=== PATIENT | male | born 1945 | race Caucasian/White ===

== ENCOUNTER 2024-12-18 07:57 | Emergency (ER) | payer BC, MEDICARE, SELFPAY ==
[2024-12-18 08:24] VITALS: BP 153/97; PULSE 62; RESP 16; TEMP 36.6; O2SAT 95
--- NOTE | 2024-12-18 08:30 | DI.RAD_ITS ---
Exam(s) XR WRIST RT COMPLETE EXAM: XR WRIST RT COMPLETE CLINICAL HISTORY: Right wrist pain. TECHNIQUE: 2D digital imaging was performed. COMPARISON: No exams were available for comparison FINDINGS: 3 views No evidence of acute fracture or dislocation nor significant ulnar variance. Scaphoid and scapholunate distance are normal. Bone density normal. No osseous lesions nor erosions. No significant degenerative changes in the wrist. IMPRESSION: No significant osseous findings in the right wrist. DATA REPOSITORY: RADIATION DOSE DELIVERED:
--- NOTE | 2024-12-18 08:42 | ED.GENADUL_ITS ---
Discharge Plan Disposition Patient Disposition: Home Condition: Good Discharge Details Clinical Impression: Contusion of right wrist, Sprain of right wrist Primary Care Provider: None,None ED Provider: Nya Correia Home Meds and New Rx's Prescriptions: Continued lovastatin 40 mg tablet 40 mg PO DAILY Patient Comments: TAKE 1 TABLET BY MOUTH EVERY DAY Discharge Instructions Instructions: Wrist Sprain ED Additional Instructions: As we discussed, your x-ray is reassuring. No evidence to suggest fracture or dislocation. Please continue to encourage rest, ice, elevation. Tylenol and ibuprofen as needed for discomfort. Please take as directed on the packaging. Please follow-up with your primary care in 2 weeks for reevaluation. You may use the splint to help with discomfort while this persist. If you develop any new or worsening symptoms please seek care urgently once again. HPI General Date/Time Provider Initiated Documentation: 12/18/24 08:28 . Limitations to Documentation: no limitations . Information obtained by: patient and RN notes reviewed . History of Present Illness 79 year old M presents to the emergency department with the chief complaint of right wrist pain, described as moderate, Quality is described as aching, Patient reports no radiation. Patient started experiencing this day(s) (1) and it has been constant. Immobilization improves symptom(s), Movement worsens symptoms . Patient notes no other symptoms.. Patient did receive the following treatments prior to arrival, none Related Data Home Medications Medication Instructions Recorded Confirmed lovastatin 40 mg tablet 40 mg PO DAILY 12/18/2411/21 Allergies Allergy/AdvReac Type Severity Reaction Status Date / Time No Known Allergies Allergy Unverified 12/18/24 08:26 General Stated Complaint: Orthopedic ANTELMO: 4 Review of Systems Constitutional Constitutional: Reports as per HPI, Denies fever(s) and Denies weakness Cardiovascular Cardiovascular: Reports as per HPI Musculoskeletal Musculoskeletal: Reports as per HPI and Denies tingling Integumentary/Breasts Skin/Breast: Reports as per HPI and Denies rash Neurologic Neurologic: Reports as per HPI, Denies tingling, Denies paresthesias and Denies weakness Exam Const General: cooperative, healthy appearing, comfortable, no acute distress, well developed and well groomed Nutritional Appearance: average body habitus and well nourished Orientation: alert and awake Resp Effort & Inspection: normal respiratory effort, able to speak in complete sentences and no respiratory distress Cardio Rate: regular rate Rhythm: regular rhythm Skin Wounds: wounds noted (Superficial circular abrasion less than 1 cm ulnar side of palm right hand) Neuro General: patient alert and patient awake Cognition: normal cognition Speech: speech normal Motor: muscle tone normal throughout Sensory Exam: no sensory deficits noted Extrem Hand/finger images: 2 1. Area of discomfort. No swelling, deformities appreciated. He does have a small break in the skin, less than 1 cm on the ulnar side of the palm. He has 2+ distal pulses. Full sensation. No pain with palpation about the hand. No pain over the anatomical snuffbox. No pain with axial thumb loading. Has good range of motion of the wrist but does have pain, with full extension as well as radial deviation. Full range of motion of the elbow. Course Vital Signs Vital signs: Vital Signs Temperature 36.6 C 12/18/24 08:24 Pulse 62 12/18/24 08:24 Respiratory Rate 16 12/18/24 08:24 Blood Pressure 153/97 H 12/18/24 08:24 Pulse Oximetry 95 12/18/24 08:24 Temperature 36.6 C 12/18/24 08:24 Temperature Source Tympanic 12/18/24 08:24 Pulse 62 12/18/24 08:24 Respiratory Rate 16 12/18/24 08:24 Blood Pressure 153/97 H 12/18/24 08:24 Blood Pressure Position Sitting 12/18/24 08:24 Pulse Oximetry 95 12/18/24 08:24 Oxygen Delivery Method Room Air 12/18/24 08:24 Oxygen Flow Rate 0 12/18/24 08:24 Pain Level 4 12/18/24 08:24 Medical Decision Making Patient is a pleasant 79-year-old right-handed gentleman presenting today with chief complaint of right wrist pain. Patient reports that [place] when he fell on his outstretched hand suffering injury. Since then, has had pain with movement of the wrist, particularly medial deviation. He denies any previous injury or surgery to this wrist. He denies any numbness or tingling. Denies other injury at the time of the incident. On exam, patient appears nontoxic. Resting comfortably no acute distress. He is 2+ distal pulses. Capillary refills intact. Sensation is intact. Good range of motion of the digits. He does have difficulty extension of the middle finger on the right hand but he reports that this is chronic and unchanged associated with prior injury. Pain is primarily over the distal radius of but this does spare the snuffbox. No snuffbox tenderness or pain with axial loading of the thumb. He has no pain with palpation in the hand, forearm or elbow. Full range of motion of these areas as well. Patient does have a small abrasion on the ulnar side of the palm very superficial. Patient reports he is up-to-date on tetanus. Will obtain x-ray to evaluate for potential fracture. X-ray reviewed by myself as well as radiologist with no acute abnormalities noted. With likely sprain. Encouraged rest, ice, elevation. Tylenol and ibuprofen as needed for discomfort. Will place in a splint to help with discomfort and allow for better ADLs. Again, no findings on exam to suggest injury to navicular bone. Encourage follow-up with primary care in 2 weeks for reevaluation. Discussed all these findings with the patient. Return precautions were discussed. All of his questions and concerns were addressed and he is in agreement this plan. Dictation completed using [employer] dictation software. Please excuse any errors or shade cutter anomalies that may remain. FORMERLY [facility], [facility] All Active Problems (Updated 12/18/24 @ 09:19 by [facility] Schneider) Sprain of right wrist (Acute) Contusion of right wrist (Acute) Social History Smoking/Tobacco Use Status: Never Smoking risk assessment performed?: Yes Alcohol Intake: never Drug use: Never Substance use type: does not use Housing: house
[2024-12-18] MEDS: Acetaminophen 500 MG TAB 1000 MG PO (09:18)
== END 2024-12-18 09:32 | disposition home or self-care (01) ==
PROVIDERS: Emergency Provider Physician Assistant
DX: S60.211A Contusion of right wrist, initial encounter (principal); S63.501A Unspecified sprain of right wrist, initial encounter; W19.XXXA Unspecified fall, initial encounter
CPT/HCPCS: 99283 ×2; 73110